=== PATIENT | male | born 1975 | race Caucasian/White ===

== ENCOUNTER 2024-02-04 09:24 | Emergency (ER) | payer OTHER, SELFPAY ==
[2024-02-04 09:35] VITALS: BP 167/96; PULSE 89; RESP 18; TEMP 36.6; O2SAT 96; BMI 44.8
--- NOTE | 2024-02-04 11:37 | ED.GENADULT ---
HPI - General Adult General Date Seen: 02/04/24 Chief complaint: Eye Problems Stated complaint: Blurry double vision problems sent from Time Seen by Provider: 02/04/24 10:56 Source: patient, RN notes reviewed and old records reviewed Mode of arrival: ambulatory Limitations: no limitations History of Present Illness HPI narrative: Patient is a 48-year-old male with relatively recent diagnoses of hypertension and diabetes, taking prescribed medications, who presents with concerns about vision in his left eye. The back story is that he has been having problems with sinus symptoms for about 10 weeks, he says he saws ENT yesterday was placed on his 5th round of antibiotics, levofloxacin this time. His ENT had recommended that he have a CT scan of his sinuses which is scheduled for next Saturday. However, a couple of days ago he started to feel like the vision in his left eye was blurry. He says if he closes his right eye he notes blurry vision, if he closes his left eye he says that is normal. He also notes that when he looks to the left he has some double vision with both eyes, but also says he has some double vision in the left eye when the right eye is closed. He does not have any pain in the eye. He has not noticed any redness or irritation, has not had headaches, nausea or vomiting, aside from his sinus symptoms which are more facial. He has had nasal congestion, he has had a cough and wheezing, all of which is presumed related to the sinus symptoms. Because of the eye symptoms, he says that yesterday after going to the ENT they went to the urgent care at [facility], where they were told he should come urgently to the emergency department for a CT scan because of possible MS or infection related to the sinus infection. They opted not come yesterday but did decide to come in today for evaluation. Symptoms are unchanged since Saturday. He has had no vision loss, just notes that the left eye seems blurry. He does not smoke. Here today with his . Related Data Home Medications ?Medication ?Instructions ?Recorded ?Confirmed levofloxacin 500 mg tablet 500 mg PO QPM 02/04/24 02/04/24 lisinopril 10 mg tablet 10 mg PO DAILY 02/04/24 02/04/24 metformin 500 mg tablet 500 mg PO BID 10/22/24 10/22/24 simvastatin 10 mg tablet 10 mg PO QPM 02/04/24 02/04/24 Previous Rx's ?Medication ?Instructions ?Recorded albuterol sulfate 90 mcg/actuation 2 puff inhalation Q6H PRN 12/08/23 aerosol inhaler shortness of breath or wheezing #6.7 grams amoxicillin 500 mg-potassium 1 tab PO BID #14 tabs 12/21/23 clavulanate 125 mg tablet (Augmentin) Allergies Allergy/AdvReac Type Severity Reaction Status Date / Time No Known Drug Allergies Allergy Verified 12/08/23 09:30 Review of Systems Status of ROS: Reports: 10 or more systems reviewed and unremarkable except as noted in History and below [facility] Medical History Sinusitis ?J32.9 - Chronic sinusitis, unspecified (ICD-10) Bronchitis ?J40 - Bronchitis, not specified as acute or chronic (ICD-10) Exam Narrative: Exam Narrative: Vital signs as noted above. In general, an alert, well-appearing patient. Head: Normocephalic, atraumatic. Eyes: Pupils are equal and reactive. Extraocular movements are full, he notes no double vision with forward vision at this time, does note double vision with leftward gaze although again says it does not entirely resolve with covering his right eye. The conjunctiva on the left appears mildly injected to me. No mattering or purulence. ENT: Mucous membranes are moist. Throat is normal. Tongue is midline. No facial erythema, edema. No temporal tenderness. Neck: Supple without lymphadenopathy. Heart: Regular rate and rhythm. No murmur or rub. Lungs: Clear bilaterally. No increased work of breathing, crackles or wheezes. Neurologic: Patient is alert and oriented to person and place. Speech is fluent. Face is symmetric. Moves all extremities equally. Affect: Normal. Skin: Warm and dry. Well perfused. No rashes. Const: Vital Signs, click to edit/add: Vital Signs - 24 hr 02/04/24 09:35 Temperature 97.9 F Pulse Rate [Right Pulse Oximeter] 89 Respiratory Rate 18 Blood Pressure [Ri ght Upper Arm] 167/96 H Pulse Oximetry 96 Oxygen Delivery Me thod Room Air Documenting provider has reviewed patient's vital signs: yes Course Course ED Course: Visual acuity was checked here. Interestingly, his vision is 20/20 on the left, 20/30 on the right. He notes diplopia on leftward gaze which is somewhat concerning, although I am not sure how to entirely reconcile this fact that the diplopia does not resolve with monocular vision. I did suggest that we do an MRI today to look at the orbits as well as the brain. Discussed with him I would also recommend that he see an eye clinic and have the eye specifically evaluated, as well as pursuing the outpatient sinus CT which I do not think there is any benefit to doing today. He and his talked about it and he would prefer to hold off on the MRI for today. Discussed that possible diagnoses would include a small stroke, something like MS, I think infection is an unlikely cause for his symptoms given the absence of any pain with eye movement or significant findings on exam otherwise. He does not have any tenderness over the temporal artery. He will make an appointment with his primary doctor, as well as see an eye doctor in the next couple of days here, and then get the CT done next Saturday as planned. We discussed reasons that he should return such as worsening eye redness, any eye pain, fevers, significant headache etcetera. Vital Signs Vital signs: Initial Vital Signs Temperature 97.9 F 02/04/24 09:35 Temperature Source Temporal Artery Scan 02/04/24 09:35 Pulse Rate 89 02/04/24 09:35 Respiratory Rate 18 02/04/24 09:35 Blood Pressure 167/96 H 02/04/24 09:35 Blood Pressure Mean 119 H 02/04/24 09:35 Blood Pressure Position Sitting 02/04/24 09:35 Pulse Oximetry 96 02/04/24 09:35 Oxygen Delivery Method Room Air 02/04/24 09:35 Vital Signs Temperature 97.9 F 02/04/24 09:35 Pulse Rate 89 02/04/24 09:35 Respiratory Rate 18 02/04/24 09:35 Blood Pressure 167/96 H 02/04/24 09:35 Pulse Oximetry 96 02/04/24 09:35 Oxygen Delivery Method Room Air 02/04/24 09:35 Temperature 97.9 F 02/04/24 09:35 Pulse Rate 89 02/04/24 09:35 Respiratory Rate 18 02/04/24 09:35 Blood Pressure 167/96 H 02/04/24 09:35 Pulse Oximetry 96 10/22/24 09:35 Oxygen Delivery Method Room Air 02/04/24 09:35 Discharge Plan Discharge Clinical Impression: Change in vision, Sinusitis Patient Disposition: Home, Self-Care Condition: Stable Instructions: Sinusitis (ED), Blurred Vision (ED) Additional Instructions: I would recommend making a follow-up appointment with your regular doctor as well as seeing an eye doctor. If your eye exam is normal, further evaluation will likely need to go through your primary doctor in terms of imaging, from my perspective MRI would be the next best step. Return to the ER at any time if you have significant changes in your vision, develops eye pain, significant headache, fevers, vomiting, other neurologic changes or other new concerns. Follow-up [address] next week as planned. Prescriptions: No Action amoxicillin-pot clavulanate [Augmentin] 500-125 mg tablet 1 tab PO BID Qty: 14 0RF albuterol sulfate 90 mcg/actuation HFA aerosol inhaler 2 puff inhalation Q6H PRN (Reason: shortness of breath or wheezing) Qty: 6.7 0RF metformin 500 mg tablet 500 mg PO BID simvastatin 10 mg tablet 10 mg PO QPM lisinopril 10 mg tablet 10 mg PO DAILY levofloxacin 500 mg tablet 500 mg PO QPM Follow Up/Referrals: Provider,Not a Local [Non-Staff] - Stand Alone Forms: [place] [facility] Info Instructions
== END 2024-02-04 11:57 | disposition home or self-care (01) ==
PROVIDERS: Emergency Provider Emergency Medicine; PCP Family Medicine
DX: H53.8 Other visual disturbances (principal); J32.9 Chronic sinusitis, unspecified
CPT/HCPCS: 99282; 99283; 99284